=== PATIENT | male | born 1985 | race African-American/Black ===

== ENCOUNTER 2019-12-31 11:25 | Emergency (ER) | payer OTHER ==
[~2019-12-31] VITALS: Ht 175.3 cm; Wt 65.0 kg
[2019-12-31] MEDS ORDERED: KETOROLAC 60MG/2ML VIAL IM ONE (13:30)
[2019-12-31] MEDS ORDERED: ACETAMINOPHEN WITH CODEINE 300/30MG TABLET PO ONE (15:30)
[2019-12-31 15:33] VITALS: BP 127/53
== END 2019-12-31 15:43 | disposition home or self-care (01) ==
LOC: ER 11:25
DX: R51 Headache (principal); Z88.0 Allergy status to penicillin
CPT/HCPCS: 96372; 99283; J1885